=== PATIENT | male | born 1950 | race Caucasian/White ===

== ENCOUNTER 2018-10-20 06:02 | Inpatient (IN) | payer OTHER ==
[~2018-10-20] VITALS: Ht 165.1 cm; Wt 81.6 kg
[2018-10-20 07:10] LABS: INR 1.1; PARTIAL THROMBOPLASTIN TIME 32.7 sec (23.4-31.0)
[2018-10-20] MEDS ORDERED: LACTATED RINGERS 1,000 ML IV SCH (07:45)
[2018-10-20] MEDS ORDERED: TAMS0.4C31 PO (08:49)
[2018-10-20] MEDS ORDERED: LISI10TA5 PO (08:49)
[2018-10-20] MEDS ORDERED: PRAV40TA58 PO (08:49)
[2018-10-20] MEDS ORDERED: FINA5TAB11 PO (08:49)
[2018-10-20] MEDS ORDERED: ONDANSETRON HCL 4MG/2ML INJ IV PRN ×3 (09:30→14:15)
[2018-10-20] MEDS ORDERED: FENTANYL CITRATE/PF 50MCG/ML 2ML VIAL ONE ×3 (09:34→10:42)
[2018-10-20] MEDS ORDERED: NEOSTIGMINE METHYLSULFATE 1MG/ML 10 ML VIAL ONE (09:35)
[2018-10-20] MEDS ORDERED: MIDAZOLAM HCL 2 MG/2 ML VIAL ONE (09:35)
[2018-10-20] MEDS ORDERED: ROCURONIUM BROMIDE 10MG/ML VIAL 5ML IV ONE (09:35)
[2018-10-20] MEDS ORDERED: PROPOFOL 200MG/20ML VIAL IV ONE (09:35)
[2018-10-20] MEDS ORDERED: SKIN ADHESIVE 0.7 GM EA TOP ONE (09:36)
[2018-10-20] MEDS ORDERED: BUPIVACAINE HCL 0.5% (5MG/ML) 50ML ONE (09:36)
[2018-10-20] MEDS ORDERED: GLYCOPYRROLATE 0.2 MG/ML 2ML VIAL ONE ×2 (09:57→10:41)
[2018-10-20] MEDS ORDERED: BUPIVACAINE HCL 0.5% 290 ML in ON-Q PM025 DRUG DELIV DEVICE 1 EA IR NR (11:16)
[2018-10-20] MEDS ORDERED: FENTANYL CITRATE/PF 50MCG/ML 2ML VIAL IV PRN (11:30)
[2018-10-20] MEDS ORDERED: MORPHINE SULFATE 4 MG/ML CPJ (NOT FOR IM USE) IV PRN (11:30)
[2018-10-20] MEDS ORDERED: MEPERIDINE HCL/PF 25MG/ML CPJ IV PRN (11:30)
[2018-10-20] MEDS: HYDROMORPHONE HCL/PF 2MG/ML CPJ IV PRN ×5 (12:08→13:25)
[2018-10-20] MEDS ORDERED: NA PHOS,M-B/NA PHOS,DI-BA ENEMA 118ML PR PRN (14:15)
[2018-10-20] MEDS ORDERED: CLONIDINE 0.1MG TABLET PO PRN (14:15)
[2018-10-20] MEDS ORDERED: DIPHENHYDRAMINE 50MG/ML VIAL IV PRN (14:15)
[2018-10-20] MEDS ORDERED: ACETAMINOPHEN 650MG SUPP PR PRN (14:15)
[2018-10-20] MEDS ORDERED: HYDROCODONE/ACETAMINOPHEN 5/325MG TABLET PO PRN (14:15)
[2018-10-20] MEDS ORDERED: GUAIFENESIN 200MG/10ML SUGAR FREE UDC PO PRN (14:15)
[2018-10-20] MEDS ORDERED: ACETAMINOPHEN 325MG TABLET PO PRN (14:15)
[2018-10-20] MEDS ORDERED: MAGNESIUM/ALUMINUM HYDROXIDE/SIMETHICONE 30ML UDC PO PRN (14:15)
[2018-10-20] MEDS ORDERED: LORAZEPAM 0.5MG TABLET PO PRN (14:15)
[2018-10-20] MEDS ORDERED: DOCUSATE SODIUM 100MG CAPSULE PO PRN (14:15)
[2018-10-20] MEDS ORDERED: IPRATROPIUM/ALBUTEROL 0.5-3(2.5)MG/3ML NEB INH PRN (14:15)
[2018-10-20 14:30] VITALS: BP 129/52
[2018-10-20 14:50] VITALS: BP 129/52
[2018-10-20 16:00] VITALS: BP 117/56
[2018-10-20 16:13] LABS: CLARITY URINE TURBID (CLEAR); COLOR URINE DARK YELLOW (YELLOW); KETONES URINE 3+ (NEGATIVE); LEUKOCYTE ESTERASE URINE NEGATIVE (NEGATIVE); NITRITE URINE NEGATIVE (NEGATIVE); OCCULT BLOOD URINE 3+ (NEGATIVE); PROTEIN URINE 2+ (NEGATIVE); SPECIFIC GRAVITY URINE 1.033 (1.005-1.030); UROBILINOGEN URINE 0.2 E.U./dL (0.2-1.0)
[2018-10-20 16:47] LABS: HEMATOCRIT 41.7 % (42.0-52.0); HEMOGLOBIN 13.8 g/dL (14.0-18.0); MEAN CORPUSCULAR HEMOGLOBIN 29.4 pg (28.0-32.0); MEAN CORPUSCULAR VOLUME 88.9 fL (80.0-94.0); PLATELET 293 x1000/uL (130-400); RED BLOOD CELL COUNT 4.69 mill/uL (4.7-6.1); RED CELL DISTRIBUTION WIDTH 13.4 % (11.6-14.6)
[2018-10-20 16:50] LABS: *AMPHETAMINES SCREEN URINE NEGATIVE (NEGATIVE); *BARBITURATES SCREEN URINE NEGATIVE (NEGATIVE); *BENZODIAZEPINES SCREEN URINE PRESUMTIVE POSITIVE (NEGATIVE); *COCAINE SCREEN URINE NEGATIVE (NEGATIVE); METHADONE URINE SCREEN NEGATIVE (NEGATIVE); OPIATES URINE SCREEN PRESUMTIVE POSITIVE (NEGATIVE)
[2018-10-20 16:51] LABS: CANNABINOID URINE SCREEN NEGATIVE (NEGATIVE); PHENCYCLIDINE URINE SCREEN NEGATIVE (NEGATIVE)
[2018-10-20 16:53] LABS: CHLORIDE 111 mEq/L (98-107)
[2018-10-20] MEDS: METRONIDAZOLE 500 MG PREMIX 100 ML IV SCH ×2 (17:07→23:30)
[2018-10-20] MEDS: CEFAZOLIN 1000MG PREMIX 50 ML IV SCH (18:31)
[2018-10-20] MEDS: DEXT 5%/0.45% NACL KCL 20MEQ/L 1,000 ML IV SCH (19:25)
[2018-10-20 20:00] VITALS: BP 129/57
[2018-10-21] VITALS: BP 145/95
[2018-10-21] MEDS: CEFAZOLIN 1000MG PREMIX 50 ML IV SCH (01:53)
[2018-10-21] MEDS: DEXT 5%/0.45% NACL KCL 20MEQ/L 1,000 ML IV SCH ×2 (01:58→15:47)
[2018-10-21] MEDS: HYDROCODONE/ACETAMINOPHEN 5/325MG TABLET PO PRN ×3 (01:58→10:00)
[2018-10-21 04:00] VITALS: BP 129/60
[2018-10-21 07:19] LABS: BASOPHILS % 0.3 % (0.0-2.0); HEMATOCRIT. 38.3 % (42.0-52.0); HEMOGLOBIN. 12.5 g/dL (14.0-18.0); LYMPHOCYTES % 7.1 % (20.0-50.0); MEAN CORPUSCULAR HEMOGLOBIN 28.9 pg (28.0-32.0); MEAN CORPUSCULAR VOLUME 88.6 fL (80.0-94.0); MEAN PLATELET VOLUME 8.9 fl (7.4-10.4); MONOCYTES % 10.5 % (2.0-8.0); NEUTROPHILS % 82.1 % (40.0-76.0); PLATELET 270 x1000/uL (130-400); RED BLOOD CELL COUNT 4.32 mill/uL (4.7-6.1); RED CELL DISTRIBUTION WIDTH 13.8 % (11.6-14.6)
[2018-10-21 07:43] LABS: CHLORIDE 111 mEq/L (98-107)
[2018-10-21 07:54] LABS: LDL CHOLESTEROL 54 mg/dL (5-100)
[2018-10-21 07:55] LABS: HDL CHOLESTEROL 45 mg/dL (40-59)
[2018-10-21 08:00] VITALS: BP 124/53
[2018-10-21] MEDS: ENOXAPARIN 40MG/0.4ML SYR SUBCUT SCH (09:03)
[2018-10-21 12:00] VITALS: BP 126/54
[2018-10-21 16:00] VITALS: BP 147/60
[2018-10-21] MEDS: MORPHINE SULFATE 4 MG/ML CPJ (NOT FOR IM USE) IV PRN ×2 (16:40→20:56)
[2018-10-21 20:00] VITALS: BP 153/65
[2018-10-22] VITALS: BP 152/65
[2018-10-22] MEDS: DEXT 5%/0.45% NACL KCL 20MEQ/L 1,000 ML IV SCH ×3 (01:50→17:00)
[2018-10-22] MEDS: MORPHINE SULFATE 4 MG/ML CPJ (NOT FOR IM USE) IV PRN ×6 (01:51→22:41)
[2018-10-22 04:00] VITALS: BP 154/66
[2018-10-22 06:09] LABS: HEMATOCRIT. 37.1 % (42.0-52.0); HEMOGLOBIN. 12.5 g/dL (14.0-18.0); MEAN CORPUSCULAR HEMOGLOBIN 29.7 pg (28.0-32.0); MEAN CORPUSCULAR VOLUME 88.2 fL (80.0-94.0); MEAN PLATELET VOLUME 8.7 fl (7.4-10.4); PLATELET 252 x1000/uL (130-400); RED BLOOD CELL COUNT 4.21 mill/uL (4.7-6.1); RED CELL DISTRIBUTION WIDTH 13.4 % (11.6-14.6)
[2018-10-22 06:19] LABS: CHLORIDE 109 mEq/L (98-107)
[2018-10-22 08:00] VITALS: BP 168/69
[2018-10-22] MEDS: ENOXAPARIN 40MG/0.4ML SYR SUBCUT SCH (08:41)
[2018-10-22 10:54] LABS: PLATELET ESTIMATE NORMAL
[2018-10-22 12:00] VITALS: BP 149/72
[2018-10-22 16:16] VITALS: BP 159/67
[2018-10-22 20:00] VITALS: BP 168/64
[2018-10-23] VITALS (7 sets, daily range): BP systolic 140–181; BP diastolic 54–69
[2018-10-23] MEDS: DEXT 5%/0.45% NACL KCL 20MEQ/L 1,000 ML IV SCH ×3 (01:46→22:05)
[2018-10-23] MEDS: MORPHINE SULFATE 4 MG/ML CPJ (NOT FOR IM USE) IV PRN ×5 (03:55→21:24)
[2018-10-23 06:25] LABS: HEMATOCRIT 39.4 % (42.0-52.0); HEMOGLOBIN 13.1 g/dL (14.0-18.0); MEAN CORPUSCULAR HEMOGLOBIN 29.5 pg (28.0-32.0); MEAN CORPUSCULAR VOLUME 88.5 fL (80.0-94.0); PLATELET 263 x1000/uL (130-400); RED BLOOD CELL COUNT 4.45 mill/uL (4.7-6.1); RED CELL DISTRIBUTION WIDTH 13.2 % (11.6-14.6)
[2018-10-23 06:54] LABS: CHLORIDE 107 mEq/L (98-107)
[2018-10-23] MEDS: ENOXAPARIN 40MG/0.4ML SYR SUBCUT SCH (08:32)
[2018-10-23] MEDS: HYDRALAZINE 20MG/ML VIAL IV PRN ×2 (08:40→20:59)
[2018-10-24] VITALS (7 sets, daily range): BP systolic 131–169; BP diastolic 64–68
[2018-10-24] MEDS: MORPHINE SULFATE 4 MG/ML CPJ (NOT FOR IM USE) IV PRN ×2 (05:24→09:33)
[2018-10-24] MEDS: DEXT 5%/0.45% NACL KCL 20MEQ/L 1,000 ML IV SCH (09:32)
[2018-10-24] MEDS: ENOXAPARIN 40MG/0.4ML SYR SUBCUT SCH (09:33)
[2018-10-24] MEDS: HYDRALAZINE 20MG/ML VIAL IV PRN (09:33)
[2018-10-24] MEDS ORDERED: ACETAMINOPHEN 650MG/20.3ML UDC PO PRN (12:15)
== END 2018-10-24 14:38 | disposition home or self-care (01) | DRG 331 ==
LOC: OR 06:02 → 8WST 06:03
PROVIDERS: ADMIT Internal Medicine; ATTEND Internal Medicine
PROC: 0DBN0ZZ Excision of Sigmoid Colon, Open Approach (ICD-10-PCS; principal; 2018-10-21)
DX: Z43.3 Encounter for attention to colostomy (principal); D64.9 Anemia, unspecified; D72.829 Elevated white blood cell count, unspecified; I10 Essential (primary) hypertension; G89.18 Other acute postprocedural pain
CPT/HCPCS: 36415; 71045; 74018; 80048; 80061; 80305; 83036; 85027; 86850; 86900; 88305; 88307; 93306; 93970; 97116; 97162; J0360; J0690; J1170; J1650; J2250; J2270; J2704; J2710; J3010; J3490; J7040